=== PATIENT | male | born 1965 | race Caucasian/White ===

== ENCOUNTER 2018-10-19 21:20 | Emergency (ER) | payer MEDICAID ==
[~2018-10-19] VITALS: Ht 180.3 cm; Wt 84.5 kg
[2018-10-19 21:23] VITALS: Ht 180.3 cm; Wt 84.5 kg
[2018-10-19] MEDS ORDERED: SEROQUEL25 MG PO (21:25)
[2018-10-19] MEDS ORDERED: ADVIL200 MG PO (21:25)
[2018-10-19] MEDS ORDERED: GABAPENTIN100 MG PO (21:25)
[2018-10-19 21:52] LABS: BASOPHILS 0.1 % (0-2); EOSINOPHILS 0.5 % (0-7); HEMATOCRIT 41.3 % (42.0-54.0); HEMOGLOBIN 14.3 g/dL (13.5-17.5); IMMATURE GRANULOCYTES 0.3 % (0-5); LYMPHOCYTES 7.9 % (15-50); MCH 29.4 pg (26.0-34.0); MCHC 34.6 g/dL (31.0-37.0); MCV 84.8 fL (80.0-100.0); MEAN PLATELET VOLUME 8.9 fL (7.4-10.4); MONOCYTES 4.6 % (2-11); NEUTROPHILS 86.6 % (40-80); PLATELET COUNT 196 10x3/uL (130-400); RBC 4.87 10x6/uL (4.20-6.10); RDW 13.5 % (11.5-14.5); WBC 9.4 10x3/uL (4.8-10.8)
[2018-10-19 22:12] LABS: APTT 32.3 SECONDS (22.8-39.4); INR 1.08 (0.85-1.17); PROTIME 13.5 SECONDS (11.6-15.0)
[2018-10-19 22:15] LABS: ALBUMIN 3.5 g/dL (3.4-5.0); ALKALINE PHOSPHATASE 56 U/L (46-116); ALT (SGPT) 34 U/L (10-68); BILIRUBIN - TOTAL 0.39 mg/dL (0.2-1.3); CALC OSMOLALITY 285 mosm/kg (275-300); CHLORIDE - SERUM 106 mmol/L (98-107); CREATININE - SERUM 1.2 mg/dL (0.6-1.3); GLUCOSE 125 mg/dL (74-106); POTASSIUM - SERUM 4.1 mmol/L (3.5-5.1); PROTEIN - SERUM 7.1 g/dL (6.4-8.2); SODIUM 141 mmol/L (136-145); UREA NITROGEN 25 mg/dL (7-18); eGFR NON AFRICAN AMERICAN 67 mL/min (90-120)
[2018-10-19 22:19] LABS: CKMB 0.6 U/L (0.0-3.6); CREATINE KINASE 138 UL (21-232); MAGNESIUM - SERUM 2.1 mg/dL (1.8-2.4)
[2018-10-19 22:20] LABS: TROPONIN-I < 0.017 ng/mL (0.000-0.060)
[2018-10-20 00:50] LABS: APPEARANCE CLEAR (CLEAR); BILIRUBIN NEGATIVE (NEGATIVE); COLOR YELLOW (YELLOW); GLUCOSE NEGATIVE (NEGATIVE); KETONE NEGATIVE (NEGATIVE); NITRITE NEGATIVE (NEGATIVE); PROTEIN NEGATIVE (NEGATIVE); SPECIFIC GRAVITY 1.015 (1.005-1.020); UROBILINOGEN NORMAL (NORMAL)
[2018-10-20] MEDS ORDERED: PHENERGAN25 M1 PO (01:26)
[2018-10-20 01:40] VITALS: BP 127/75
== END 2018-10-20 01:40 | disposition home or self-care (01) ==
LOC: D.ER 21:20
PROVIDERS: Family Medicine
DX: K52.9 Noninfective gastroenteritis and colitis, unspecified (principal); N28.1 Cyst of kidney, acquired; B34.9 Viral infection, unspecified